=== PATIENT | female | born 2005 | race Caucasian/White ===

== ENCOUNTER 2024-03-26 11:56 | Outpatient (CLI) | payer BC | END 2024-03-26 11:57 | disposition home or self-care (01) | LOC: CSHRAD 11:56 | PROVIDERS: ATTEND Family Medicine | DX: M54.6 Pain in thoracic spine (principal); M54.50 Low back pain, unspecified; M41.9 Scoliosis, unspecified | CPT/HCPCS: 72070; 72100 ==